=== PATIENT | male | born 1975 | race American Indian/Alaskan Native ===

== ENCOUNTER 2019-10-20 13:09 | Emergency (ER) | payer MEDICARE ==
[2019-10-20] MEDS ORDERED: HALOPERIDOL LACTATE 5 MG/1 ML INJ IM PRN (13:22)
[2019-10-20] MEDS ORDERED: LORazepam 2 MG/ML VIAL IM PRN (13:22)
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
[2019-10-20 14:19] LABS: Bacteria,Urine 1+ /HPF (Negative); Bilirubin,Urine NEG (Negative); Blood,Urine SM (Negative); Color,Urine Straw (Yellow); Mucus,Urine FEW /HPF; Urobilinogen,Urine < 2.0 mg/dL (<2.0); WBC,Urine < 1.0 /HPF (0.0-6.0)
[2019-10-20 14:31] LABS: Amphetamine Screen,Urine PRESUMPTIVE NEGATIVE; Benzodiazepines Screen,Urine PRESUMPTIVE NEGATIVE; Cannabinoid Screen,Urine PRESUMPTIVE NEGATIVE; Methadone Screen,Urine PRESUMPTIVE NEGATIVE; Opiate Screen,Urine PRESUMPTIVE NEGATIVE
[2019-10-20 14:47] LABS: Cocaine Screen,Urine PRESUMPTIVE POSITIVE
[2019-10-20 15:22] LABS: Hemoglobin 13.6 gm/dl (11.8-15.2); Mean Corpuscular HGB Conc 33 % (32-34); Mean Corpuscular Volume 80 fl (84-94); Platelet Count 349 K/mm3 (140-440); Red Blood Count 5.13 M/mm3 (3.65-5.03); Red Cell Distribution Width 15.2 % (13.2-15.2)
[2019-10-20 15:38] LABS: BUN/Creatinine Ratio 16; Blood Urea Nitrogen 11 mg/dL (9-20); Calcium 9.2 mg/dL (8.4-10.2); Hemolysis Index 8
[2019-10-20] MEDS ORDERED: SODIUM CHLORIDE 0.9% 1000 ML 1,000 ML IV ONE (19:31)
[2019-10-20] MEDS ORDERED: THIAMINE 100 MG, FOLIC ACID 1 MG, MULTIPLE VITAMIN INJ, ADULT 10 ML in SODIUM CHLORIDE ... IV ONE (19:31)
[2019-10-21 02:49] VITALS: BP 168/87
== END 2019-10-21 05:00 ==
LOC: ED 13:09
DX: F10.920 Alcohol use, unspecified with intoxication, uncomplicated (principal); F12.10 Cannabis abuse, uncomplicated; R94.4 Abnormal results of kidney function studies; F20.89 Other schizophrenia; I10 Essential (primary) hypertension; E11.9 Type 2 diabetes mellitus without complications; F17.200 Nicotine dependence, unspecified, uncomplicated; F14.10 Cocaine abuse, uncomplicated; Z88.6 Allergy status to analgesic agent
CPT/HCPCS: 36415; 80048; 80307; 81001; 82550; 83735; 85027; 96365; 96366; 99285; J3411; J7030; 80320; G0480